=== PATIENT | male | born 1975 | race Caucasian/White ===

== ENCOUNTER 2022-02-02 17:42 | Emergency (ER) | payer OTHER ==
[~2022-02-02 17:42] MED LIST: IBU800 MG PO; LISINOPRIL-HYDR1 TA3 PO; MELOXICAM15 MG PO; Motrin,Rufen800 MG PO; NORCO 5-325 TA1 EACH PO
== END 2022-02-02 18:49 | disposition home or self-care (01) ==
LOC: ED 17:42
DX: S01.01XA Laceration without foreign body of scalp, initial encounter (principal); W18.39XA Other fall on same level, initial encounter; Y93.89 Activity, other specified; Y92.89 Other specified places as the place of occurrence of the external cause; Y99.8 Other external cause status

== ENCOUNTER 2024-06-11 07:37 | Emergency (ER) | payer OTHER ==
[~2024-06-11] VITALS: Wt 116.1 kg
[2024-06-11] MEDS ORDERED: Cyclobenzaprine Hydrochlorid 10 MG TAB PO ONE (08:35)
[2024-06-11] MEDS ORDERED: CYCLOBENZAPRINE5 M3 PO (10:47)
== END 2024-06-11 11:05 | disposition home or self-care (01) ==
LOC: ED 07:37
DX: S16.1XXA Strain of muscle, fascia and tendon at neck level, initial encounter (principal); R51.9 Headache, unspecified; I10 Essential (primary) hypertension; Z98.890 Other specified postprocedural states; X50.1XXA Overexertion from prolonged static or awkward postures, initial encounter; Y93.89 Activity, other specified; Y92.89 Other specified places as the place of occurrence of the external cause; Y99.0 Civilian activity done for income or pay

== ENCOUNTER → 2025-04-18 | Outpatient (CLI) | payer SELFPAY ==
[~2025-04-18] MED LIST changes: +CYCLOBENZAPRINE5 M3 PO
== END | disposition home or self-care (01) ==
LOC: RAD 10:06
PROVIDERS: ATTEND Nurse Practitioner Family
DX: I44.4 Left anterior fascicular block (principal)